=== PATIENT | female | born 1960 | race Caucasian/White ===

== ENCOUNTER 2019-05-06 15:35 | Emergency (ER) | payer OTHER ==
[2019-05-06] MEDS: KETOROLAC 30 MG INJ IM (17:09)
== END 2019-05-06 17:30 | disposition home or self-care (01) ==
LOC: FTE 15:35
DX: M17.32 Unilateral post-traumatic osteoarthritis, left knee (principal); I10 Essential (primary) hypertension
CPT/HCPCS: 96372; 99284-25